=== PATIENT | female | born 1975 | race American Indian/Alaskan Native ===

== ENCOUNTER 2021-12-18 11:09 | Emergency (ER) | payer SELFPAY ==
[2021-12-18] MEDS ORDERED: predniSONE 20 MG TAB PO ONE (17:10)
[2021-12-18] MEDS ORDERED: ACETAMINOPHEN 500 MG TAB PO ONE (17:10)
[2021-12-18] MEDS ORDERED: IBUPROFEN 600 MG TAB PO ONE (17:11)
--- NOTE | 2021-12-18 17:18 | Emergency Department Report ---
ED Back Pain/Injury HPI - General Chief Complaint: Back Pain/Injury Stated Complaint: LEFT SIDE BACK PAIN Source: patient Limitations: No Limitations - History of Present Illness Initial Comments: Patient is a 46-year-old -[place] female with no past medical history who presents to the ED with complaint of acute onset persistent nontraumatic low back pain for the last 1 week, worse in the last 3 days. Patient states that the pain has been constant and persistent and especially worse with any movement or for any physical activity. Patient denies fall, traumatic injury, heavy lifting, chest pain or shortness of breath, dysuria, urinary frequency and urgency, nausea and vomiting, numbness and tingling or weakness of lower extremities bilaterally, vaginal bleeding, vaginal discharge, fever, chills or abdominal pain. MD Complaint: back pain (Left lower back pain) -: week(s) (1) Similar Symptoms Previously: No Place: work Radiation: none Severity: severe Severity scale (0 -10): 7 Quality: sharp, aching Consistency: constant Improves With: none Worsens With: movement, walking Context: while lifting, turning/twisting Associated Symptoms: denies other symptoms. denies: confusion, weakness, chest pain, numbness, difficulty walking, cough, difficulty urinating, diaphoresis, incontinence, fever/chills, constipation, headaches, abdominal pain, loss of appetite, malaise, nausea/vomiting, rash, seizure, shortness of breath, syncope, other Treatments Prior to Arrival: ASA - Related Data Previous Rx's Medication Instructions Recorded Last Taken Type Naproxen 500 mg PO Q12H PRN #30 tab 12/18/21 Unknown Rx methOCARBAMOL [Robaxin TAB] 750 mg PO BID PRN #30 tab 12/18/21 Unknown Rx predniSONE [Deltasone] 60 mg PO QDAY #15 tab 12/18/21 Unknown Rx traMADoL [Ultram] 50 mg PO Q6HR PRN #10 tablet 12/18/21 Unknown Rx Allergies Allergy/AdvReac Type Severity Reaction Status Date / Time No Known Allergies Allergy Verified 12/18/21 11:29 ED Review of Systems ROS: Stated complaint: LEFT SIDE BACK PAIN Other details as noted in HPI Constitutional: denies: chills, fever Eyes: denies: eye pain, eye discharge, vision change ENT: denies: ear pain, throat pain Respiratory: denies: cough, shortness of breath, wheezing Cardiovascular: denies: chest pain, palpitations Endocrine: no symptoms reported Gastrointestinal: denies: abdominal pain, nausea, diarrhea Genitourinary: denies: urgency, dysuria, frequency, hematuria, discharge, abnormal menses Musculoskeletal: back pain (LOWER BACK). denies: joint swelling, arthralgia Skin: denies: rash, lesions Neurological: denies: headache, weakness, paresthesias Psychiatric: denies: anxiety, depression Hematological/Lymphatic: denies: easy bleeding, easy bruising ED Past Medical Hx - Medications Home Medications: Home Medications Medication Instructions Recorded Confirmed Last Taken Type Naproxen 500 mg PO Q12H PRN #30 tab 12/18/21 Unknown Rx methOCARBAMOL [Robaxin TAB] 750 mg PO BID PRN #30 tab 12/18/21 Unknown Rx predniSONE [Deltasone] 60 mg PO QDAY #15 tab 12/18/21 Unknown Rx traMADoL [Ultram] 50 mg PO Q6HR PRN #10 tablet 12/18/21 Unknown Rx ED Physical Exam - General Limitations: No Limitations General appearance: alert, in no apparent distress - Head Head exam: Present: atraumatic, normocephalic, normal inspection - Eye Eye exam: Present: normal appearance, PERRL, EOMI Pupils: Present: normal accommodation - ENT ENT exam: Present: normal exam, normal orophraynx, mucous membranes moist, TM's normal bilaterally, normal external ear exam - Neck Neck exam: Present: normal inspection, full ROM. Absent: tenderness - Respiratory Respiratory exam: Present: normal lung sounds bilaterally. Absent: respiratory distress, wheezes, rales, rhonchi, stridor, chest wall tenderness, accessory muscle use, prolonged expiratory - Cardiovascular Cardiovascular Exam: Present: regular rate, normal rhythm, normal heart sounds. Absent: systolic murmur, diastolic murmur, rubs, gallop - GI/Abdominal GI/Abdominal exam: Present: soft, normal bowel sounds. Absent: tenderness, guarding, rebound, hyperactive bowel sounds, hypoactive bowel sounds, organ omegaly - Extremities Exam Extremities exam: Present: normal inspection, full ROM, normal capillary refill. Absent: tenderness, pedal edema, joint swelling, calf tenderness - Back Exam Back exam: Present: normal inspection, full ROM, tenderness (Palpable lumbosacral paraspinal musculoskeletal tenderness), muscle spasm, paraspinal tenderness. Absent: CVA tenderness (R), CVA tenderness (L), vertebral tenderness - Neurological Exam Neurological exam: Present: alert, oriented X3, CN II-XII intact, normal gait, reflexes normal - Psychiatric Psychiatric exam: Present: normal affect, normal mood - Skin Skin exam: Present: warm, dry, intact, normal color. Absent: rash ED Course Vital Signs 12/18/21 11:27 Temperature 96.9 F L Pulse Rate 63 Respiratory 18 Rate Blood Pressure 146/84 [Right] O2 Sat by Pulse 99 Oximetry ED Medical Decision Making - Medical Decision Making This is a 46-year-old -[place] female with no past medical history who presents to the ED with complaint of acute onset persistent nontraumatic low back pain for the last 1 week, worse in the last 3 days. Patient states that the pain has been constant and persistent and especially worse with any movement or for any physical activity. In the ED, patient is alert and oriented x3 and is not in any distress. Patient is hemodynamically stable. Patient was treated for pain in the ED and based on the history and physical exam findings, in the absence of any traumatic event, the patient symptoms are likely musculoskeletal. Patient was therefore discharged home on pain medications and advised to follow-up with her primary care physician in 7 to 10 days for reevaluation or return to the ED immediately if symptoms get worse. - Differential Diagnosis muscle spasm; Muscle strain; Lumbar disc disease Critical care attestation.: If time is entered above; I have spent that time in minutes in the direct care of this critically ill patient, excluding procedure time. ED Disposition Clinical Impression: Spasm of muscle of lower back, Strain of muscle, fascia and tendon of lower back, initial encounter, Acute bilateral low back pain without sciatica Disposition: HOME / SELF CARE / HOMELESS Is pt being admited?: No Does the pt Need Aspirin: No Condition: Stable Instructions: Muscle Cramps and Spasms, [id number], Muscle Strain, [id number], Acute Back Pain, Adult, Low Back Sprain or Strain Rehab-SportsMed, Lumbosacral Strain Additional Instructions: Your symptoms are likely due to muscle strains or muscle spasm of your lower back. Therefore take medications with food, drink plenty of fluids and follow- up with your primary care physician in 7 to 10 days for reevaluation. Return to the ED immediately if symptoms get worse. Prescriptions: predniSONE [Deltasone] 60 mg PO QDAY #15 tab Naproxen 500 mg PO Q12H PRN #30 tab PRN Reason: Pain , Severe (7-10) methOCARBAMOL [Robaxin TAB] 750 mg PO BID PRN #30 tab PRN Reason: Muscle Spasm traMADoL [Ultram] 50 mg PO Q6HR PRN #10 tablet PRN Reason: Pain Forms: Work/School Release Form(ED) Time of Disposition: 17:21 Print Language: ICELANDIC
[2021-12-18 18:16] VITALS: BP 134/60
== END 2021-12-18 18:17 | disposition home or self-care (01) ==
LOC: ED 11:09
DX: S39.012A Strain of muscle, fascia and tendon of lower back, initial encounter (principal); X58.XXXA Exposure to other specified factors, initial encounter; Y93.89 Activity, other specified; Y92.89 Other specified places as the place of occurrence of the external cause; Y99.8 Other external cause status
CPT/HCPCS: 99282